=== PATIENT | male | born 1995 | race Caucasian/White ===

== ENCOUNTER 2024-02-10 13:28 | Outpatient (CLI) | payer OTHER, SELFPAY ==
--- NOTE | ~2024-02-10 | XR_ITS ---
3 VIEWS LUMBAR SPINE Ordering provider: NEEL Storey History: . M54.50 - Low back pain, unspecified . Comparison: None. 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 No visible fracture or subluxation. Minimal sp ondylolisthesis at the level of L5-S1. DISK SPACES: Normal. SOFT TISSUES: Normal. IMPRESSION: No acute osseous abnormality lumbar spine. 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 Reviewed, dictated and finalized at location A.
== END 2024-02-10 13:29 ==
PROVIDERS: PCP Clinical Nurse Specialist; Visit Provider Clinical Nurse Specialist
DX: M47.896 Other spondylosis, lumbar region (principal)
CPT/HCPCS: 72100

== ENCOUNTER 2024-02-17 12:42 | Outpatient (CLI) | payer OTHER, SELFPAY ==
[2024-02-17 14:10] LABS: Basophils Percent Auto 0.5 % (0.2-1.2); Eosinophils Absolute Auto 0.1 K/mm3 (0-0.3); Eosinophils Percent Auto 1.8 % (0-4.4); Hematocrit 40.2 % (42.0-52.0); Hemoglobin 13.4 g/dL (14.0-18.0); Immature Granulocyte Absolute 0.02 K/mm3 (0.00-0.031); Immature Granulocyte Percent A 0.3 % (0-0.5); Lymphocytes Absolute Auto 2.67 K/mm3 (0.9-3.2); Lymphocytes Percent Auto 35.1 % (18.3-44.2); Mean Corpuscular HGB Conc 33.3 g/dl (32-36); Mean Corpuscular Hemoglobin 29.5 pg (26-34); Mean Corpuscular Volume 88.4 fl (80-100); Mean Platelet Volume 10.7 fl (7.4-10.4); Monocytes Absolute Auto 0.5 K/mm3 (0.1-0.6); Monocytes Percent Auto 6.6 % (2.6-8.5); Neutrophils Absolute Auto 4.2 K/mm3 (1.3-6.7); Neutrophils Percent Auto 55.7 % (45.5-73.1); Platelet Count Result 306 k/mm3 (150-375); Red Blood Count 4.55 M/mm3 (4.6-6.20); White Blood Count 7.6 K/mm3 (4.5-10.0)
[2024-02-17 14:32] LABS: Hemoglobin A1C 5.4 % (<5.7)
[2024-02-17 14:43] LABS: Alanine Aminotransferase 37 U/L (6-50); Albumin Level 4.7 g/dL (3.5-5.1); Alkaline Phosphatase 61 U/L (38-126); Anion Gap 9 mmol/L (4-12); Aspartate Amino Transferase 49 U/L (17-59); Bilirubin,Total 0.6 mg/dL (0.2-1.3); Blood Urea Nitrogen 12 mg/dL (9-20); Calcium 9.5 mg/dL (8.4-10.2); Carbon Dioxide 29 mmol/L (22-30); Chloride 99 mmol/L (98-107); Cholesterol 246 mg/dL (0-200); Estimated Glomerular Filt Rate > 60; Glucose 85 mg/dL (65-110); HDL Direct 34 mg/dL; Potassium 4.4 mmol/L (3.4-5.0); Sodium 137 mmol/L (137-145); Triglycerides 380 mg/dL (<150)
[2024-02-17 14:55] LABS: LDL Cholesterol Direct 112 mg/dL
== END 2024-02-17 12:43 | disposition home or self-care (01) ==
LOC: ANHGOSHLAB 12:43
PROVIDERS: PCP Clinical Nurse Specialist; Visit Provider Clinical Nurse Specialist
DX: Z13.29 Encounter for screening for other suspected endocrine disorder (principal); Z13.220 Encounter for screening for lipoid disorders; R73.9 Hyperglycemia, unspecified; G47.61 Periodic limb movement disorder
CPT/HCPCS: 36415; 80053; 80061; 82728; 83036; 85025

== ENCOUNTER 2024-03-31 10:25 | Outpatient (CLI) | payer OTHER, SELFPAY ==
[2024-04-14 13:08] VITALS: BMI 29.8
--- NOTE | 2024-04-14 13:08 | WPDHOMESLEEP ---
Sleep Study - Home Unattended Date of Study: 03/31/24 Ordering Provider: RALEIGH Storey-C Interpreting Provider: Noemy Gallo DO Home Sleep Study Type: Watch PAT Height: 1.68 m Weight: 83.915 kg Body Mass Index: 29.8 Neck Circumference (inches): 15.5 [place]: 0 Reason for Sleep Study Snoring, daytime hypersomnia Sleep History The patient is a 29-year-old male that had a sleep study ordered by his primary care for evaluation of sleep apnea. The patient admits to loud snoring, excessive daytime sleepiness and breathing interruptions during sleep. The patient admits to having difficulty breathing while on his back. He denies choking or gasping while asleep. He does have morning headaches. He does have a dry or sore mouth/ throat in the morning. He admits to nocturnal heartburn. He denies nocturia. He denies having trouble falling asleep. He denies having trouble remaining asleep. He denies waking up too early without an alarm. He denies using any hypnotics her sedatives. He denies feeling anxious about sleep. He goes to bed at 9:45 p.m. on work days and at 10:45 p.m. on his days off. It takes him 15 minutes to fall asleep. He gets 6-1/2 hours of sleep on his work days and 9 hours of sleep on his days off. His sleep is somewhat restorative on his days off. He denies taking any planned naps. [facility] Family History Family History Mother Diabetes mellitus Anxiety Sibling Anxiety Grandparent Diabetes mellitus Anxiety Grandparent Heart disease Diabetes mellitus Social History Social History Social History: caffeine 1-2 energy drinks, and 1-3 sodas daily Smoking status: Never smoker Alcohol intake: current Drinks per week: 4 Substance use: current Substance use type: marijuana Do You Feel Safe in your Home?: Yes Lack of Transportation: No Lack of Food: Never True Current Housing: I Have Housing Concerned About Future Housing: No Difficulty Paying Gas/Electric Bills: No Difficulty Paying for Meds: No Currently Unemployed: No Education: Trade/Vocational Certificate Difficulty w/ Childcare or Family Care: No Living arrangements: with family Medications Home Medications Medication Instructions Recorded Confirmed Type No Home Medications 02/10/24 02/10/24 History Sleep Procedure The sleep study was completed using IMNT a technically adequate device with seven channels: peripheral arterial tone, actigraphy, body position, snore, respiratory movement, pulse oximetry, sleep staging, and heart rate. Prior to using the device, the patient received verbal and written instructions for its application and was provided with the help desk phone number for additional telephonic instruction with 24-hour availability of qualified personnel to answer questions. The study was scored using [facility] guidelines. Sleep Architecture The total recording time is 7 hrs, 21 min. The total sleep time is 6 hrs, 5 min. Sleep latency is 20 minutes. REM latency is minutes. The patient had 10 episodes of waking. Sleep architecture shows % deep sleep, % light sleep, and (as % Total Sleep Time) showed NREM (Light %; Deep %), and a % stage REM. The patient spent 59.4% of total sleep time in the supine position. Sleep efficiency was 82.77. Respiratory Analysis The overall AHI (pAHI 4%:) is 13.7. The central AHI is 0.3. The AHI was N/A in NREM and N/A in REM sleep. The AHI was 22.4 in Supine and 7.0 in Non-supine sleep. Percent of Richard Elliott respirations is 0.0. Oximetry Data The oxygen desaturation index (MYRON 4%:) is 13.5. The mean saturation is 95%, and the lowest saturation is 83%. Time spent with saturation < 88% is 0.4 minutes. Snoring Profile Snoring average intensity is 48 dB. The patient snored above 45 decibels for 189.5 minutes, 51.8% of sleep time. Cardiac Pro
== END 2024-04-01 15:51 | disposition home or self-care (01) ==
PROVIDERS: PCP Clinical Nurse Specialist; Visit Provider Clinical Nurse Specialist
DX: G47.33 Obstructive sleep apnea (adult) (pediatric) (principal); G47.10 Hypersomnia, unspecified
CPT/HCPCS: 95800

== ENCOUNTER 2024-05-19 15:45 | Outpatient (RCR) | payer OTHER, SELFPAY ==
--- NOTE | 2024-02-28 15:56 | OPREHPOC ---
Outpatient Therapy Plan of Care This is a Multidisciplinary Plan of Care that may contain components documented by all disciplines (PT, OT, and ST.) PT Problem 1 PT Problem #1 Knowledge Deficit PT Goal 1 Goal / Goal Update Pt to be IND with issued HEP Target Visit 8 PT Problem 2 PT Problem #2 Pain PT Goal 1 Goal / Goal Update Pt to report back pain no greater than 3/10 in the last week. Target Visit 8 PT Goal 2 Goal / Goal Update Pt to report 75% improvement in symptoms. Target Visit 8 PT Problem 3 PT Problem #3 Impaired Strength PT Goal 1 Goal / Goal Update Pt to demonstrate 30lb lift and carry with good body mechanics. Target Visit 8
--- NOTE | 2024-02-28 15:56 | PTOPEVAL1 ---
Assessment and note entered by Yoselin Alexandra, PT, DPT Evaluation Information Assessment Status Evaluation Diagnosis low back pain ICD-10 Condition Codes (PT) Pain in low back M54.50 Onset chronic Subjective Information Pt reports when he was in the [place] he lifted something that was too heavy that caused pain to shoot up his back. He states since then turning the wrong way or lifting wrong could trigger a pain episode, this has lasted days to weeks at a time. He states day to day he has mild pain but it is tolerable and does impede with his daily tasks . When he throws his back out he have little activity throughout his day d/t pain. He states day to day it is centralized to his low back and is more of a numb achy pain, when it is aggravated it is sharp and radiates in all direction. Reported Pain Level Pain Score 3: Self Report Assessment PT Clinical Summary Pt presents to therapy today for his initial evaluation with a diagnosis of low back pain. Today he demonstrates good lumbar and LE ROM and good LE strength. He demonstrates poor standing posture with a large forward weight shift, has no plantar arches edna, and increased lumbar lordosis. He has decreased core strength as well. Skilled therapy services are indicated to improve body mechanics, postural awareness, core strength, lifting mechanics, limit pain reports, and to improve functional mobility. Plan of Care Interventions Electrical Stimulation,Gait Training,Hot Pack/Cold Pack,Manual Therapy,Neuro Re-education,Patient/ Caregiver Educati,Therapeutic Activities, Therapeutic Exercise PT Services Indicated Yes Treatment Frequency and 1-2x/wk for 8 visits Duration These treatments will address the objective and functional deficits as defined above. The patient will be advanced safely and appropriately in order for the patient to progress towards his/her prior level of function. Additional exercises will be introduced and as well as a comprehensive home exercise program upon discharge, if needed, ?to ensure carryover of functional gains achieved in the clinic. This treatment plan has been reviewed and agreement upon by the patient.
--- NOTE | 2024-03-05 14:44 | PCPTNOTE ---
Patient canceled this date due to conflicting work schedule.
--- NOTE | 2024-03-17 16:06 | PCPTNOTE ---
Patient canceled therapy due to work conflict.
--- NOTE | 2024-03-24 14:19 | PCPTNOTE ---
Patient called & cancelled scheduled appointment this date due to scheduling conflict. He has been rescheduled.
--- NOTE | 2024-04-07 15:53 | PCPTNOTE ---
Patient did not show up for scheduled appointment this date. Called and LVM with follow up instructions as this was his last appointment.
--- NOTE | 2024-04-27 16:25 | PTOPPROG ---
Assessment and note entered by Yoselin Alexandra, PT, DPT Evaluation Information Assessment Status Progress Diagnosis low back pain ICD-10 Condition Codes (PT) Pain in low back M54.50 Onset chronic Subjective Information Pt states he had a 70 hour work week last week so did not get a lot of time to do his exercises. He states his back felt good most of the time while at work, but once he got Assessment PT Clinical Summary Pt presents to therapy today for his progress report following 8 visits of skilled therapy to treat his low back pain. Today he demonstrates improved standing postures but continues to have notable limitations in his hip flexor and lat flexibility. His core strength is improving but he continues to have pain at the end of his work day . Continuation of skilled therapy services are indicated to improve body mechanics, postural awareness, core strength, lifting mechanics, limit pain reports, and to improve functional mobility. Plan of Care Interventions Electrical Stimulation,Gait Training,Hot Pack/Cold Pack,Manual Therapy,Neuro Re-education,Patient/ Caregiver Educati,Therapeutic Activities, Therapeutic Exercise PT Services Indicated Yes Treatment Frequency and 1-2x/wk for 6 visits Duration These treatments will address the objective and functional deficits as defined above. The patient will be advanced safely and appropriately in order for the patient to progress towards his/her prior level of function. Additional exercises will be introduced and as well as a comprehensive home exercise program upon discharge, if needed, ?to ensure carryover of functional gains achieved in the clinic. This treatment plan has been reviewed and agreement upon by the patient.
--- NOTE | 2024-05-13 16:24 | PCPTNOTE ---
Patient canceled due to being called out for work.
--- NOTE | 2024-05-26 16:24 | PCPTNOTE ---
Patient called to cancel this date per request.
== END 2024-05-28 23:59 | disposition home or self-care (01) ==
LOC: ANHGOSHPT 15:45
PROVIDERS: PCP Clinical Nurse Specialist; Visit Provider Clinical Nurse Specialist
DX: M54.50 Low back pain, unspecified (principal)
CPT/HCPCS: 97014; 97110; 97140; 97161; 97530; G0283

== ENCOUNTER 2024-06-18 16:23 | Outpatient (RCR) | payer OTHER, SELFPAY ==
--- NOTE | 2024-06-02 16:00 | PCPTNOTE ---
Patient called & cancelled scheduled appointment this date due to being ill. He has been rescheduled.
--- NOTE | 2024-06-18 15:38 | PTOPPROG ---
Assessment and note entered by oYselin Alexandra, PT, DPT Evaluation Information Assessment Status Progress Diagnosis low back pain ICD-10 Condition Codes (PT) Pain in low back M54.50 Onset chronic Subjective Information Pt states his back is feeling pretty good today, but he has been off work for 4 days. He reports the intensity and frequency of his pain exacerbations has not changes, but the recovery time in between them has slightly improved. He continues to get pain down his R leg. He states every 2 weeks or so he is still getting a day that he cannot get out of bed his pain is so high. Reports pain as 8/10 at the worst in the last week . Assessment PT Clinical Summary Pt presents to therapy today for his progress report following 11 visits of skilled therapy to treat his low back pain. Today pt demonstrates improved body awareness and mechanics but continues to have pain at the end of his work day. Continues to have lumbar flexibility. Continuation of skilled therapy services are indicated to improve body mechanics, core strength , limit pain reports, and to improve functional mobility. Plan of Care Interventions Therapeutic Exercise,Patient/Caregiver Education, Manual Therapy,Neuro Re-education,Therapeutic Activities,Hot Pack/Cold Pack,Electrical Stimulation,Gait Training PT Services Indicated Yes Treatment Frequency and 1x/wk for 6 visits, following CT results Duration These treatments will address the objective and functional deficits as defined above. The patient will be advanced safely and appropriately in order for the patient to progress towards his/her prior level of function. Additional exercises will be introduced and as well as a comprehensive home exercise program upon discharge, if needed, ?to ensure carryover of functional gains achieved in the clinic. This treatment plan has been reviewed and agreement upon by the patient.
--- NOTE | 2024-08-17 11:46 | PTOPDC ---
Assessment and note entered by Yoselin Alexandra, PT, DPT Evaluation Information Assessment Status Discharge - Pt Not Present Diagnosis low back pain ICD-10 Condition Codes (PT) Pain in low back M54.50 Onset chronic Subjective Information Called and spoke with pt, reviewed CT results, discussed further POC. Decided to be done with therapy for now. Assessment PT Clinical Summary Pt completed 11 visits of skilled therapy from 02/27 to 06/09/25. Will discharge at this time per pt request.
== END 2024-08-19 15:43 | disposition home or self-care (01) ==
LOC: ANHGOSHPT 16:23
PROVIDERS: PCP Internal Medicine; Visit Provider Clinical Nurse Specialist
DX: M54.50 Low back pain, unspecified (principal)
CPT/HCPCS: 97110; 97140

== ENCOUNTER 2024-08-03 08:17 | Outpatient (CLI) | payer OTHER, SELFPAY ==
--- NOTE | ~2024-08-03 | CT_ITS ---
EXAMINATION: CT lumbar spine wo con DATE: 08/03/2024 08:38 INDICATION: Low back pain, unspecified. TECHNIQUE: Computed tomography (CT) of the lumbar spine was performed without intravenous contrast. A utomated exposure control and iterative reconstruction technique were employed. The dose-length produ ct was 526.83 mGy-cm. COMPARISON: Lumbar spine radiograph 02/10/2024 FINDINGS: There is 5 degrees levocurvature of lumbar spine. There are chronic bilateral L5 pars defec ts. There is 3 mm anterolisthesis of L5 on S1. Vertebral body heights are normal. There is mildly dec reased disc height at L4-L5. The following disc levels are specifically discussed: L1-L2: The disc does not extend beyond the endplate margin. There is mild bilateral facet joint osteo arthritis. There is no neural foraminal stenosis. There is no central canal stenosis. L2-L3: The disc does not extend beyond the endplate margin. There is mild bilateral facet joint osteo arthritis. There is no neural foraminal stenosis. There is no central canal stenosis. L3-L4: The disc does not extend beyond the endplate margin. There is mild bilateral facet joint osteo arthritis. There is no neural foraminal stenosis. There is no central canal stenosis. L4-L5: The disc is bulging. There is mild bilateral facet joint osteoarthritis. There is mild right n eural foraminal stenosis. There is mild central canal stenosis. L5-S1: The disc is bulging. There is no facet joint osteoarthritis. There is mild bilateral neural fo raminal stenosis. There is mild central canal stenosis. IMPRESSION: 1. Chronic bilateral L5 pars defects with grade 1 anterolisthesis of L5 on S1. 2. Mild lumbar spondylosis. Reviewed, dictated and finalized at location A. [facility]
== END 2024-08-03 08:18 | disposition home or self-care (01) ==
PROVIDERS: PCP Internal Medicine; Visit Provider Nurse Practitioner
DX: M43.16 Spondylolisthesis, lumbar region (principal); M47.816 Spondylosis without myelopathy or radiculopathy, lumbar region
CPT/HCPCS: 72131